=== PATIENT | female | born 1960 | race African-American/Black ===

== ENCOUNTER → 2023-08-28 12:36 | Outpatient (REF) | payer OTHER, SELFPAY ==
[2023-08-28 16:31] LABS: TSH 1.44 uIU/ml (0.47-4.68)
== END ==
LOC: HWLAB 12:36
PROVIDERS: ATTENDING PHYSICIAN Internal Medicine Endocrinology, Diabetes & Metabolism; FAMILY PHYSICIAN Internal Medicine
DX: E05.00 Thyrotoxicosis with diffuse goiter without thyrotoxic crisis or storm (principal)
CPT/HCPCS: 36415; 84443

== ENCOUNTER → 2024-08-29 12:31 | Outpatient (REF) | payer OTHER, SELFPAY ==
[2024-08-29 15:57] LABS: TSH 1.76 uIU/ml (0.47-4.68)
== END ==
LOC: HWLAB 12:31
PROVIDERS: ATTENDING PHYSICIAN Internal Medicine Endocrinology, Diabetes & Metabolism; FAMILY PHYSICIAN Internal Medicine
DX: E05.00 Thyrotoxicosis with diffuse goiter without thyrotoxic crisis or storm (principal)
CPT/HCPCS: 36415; 84443